=== PATIENT | female | born 1975 | race Caucasian/White ===

== ENCOUNTER → 2019-01-24 07:32 | Outpatient (CLI) | payer OTHER, SELFPAY ==
--- NOTE | 2019-01-24 11:41 | NEURO ---
NCS and/or EMG Patient Report Ordering Doctor: Pepito Rojo DATE OF SERVICE: 01/24/19 This is a right upper extremity EMG and nerve conduction study performed on this 43-year-old female with a history of right rotary rotator cuff. She also has numbness in the right fourth and fifth digits. She reports a fracture to her right elbow in 2010 and has had pain in her elbow since that time. Right upper extremity sensory motor nerve conduction study is performed demonstrating normal median motor and sensory, ulnar motor and sensory and radial sensory responses. The median and ulnar F-wave latencies are somewhat asymmetric with prolongation of the right ulnar F-wave latency. Right upper extremity needle electromyography was performed. Muscles evaluate included the first dorsal osseous, abductor pollicis brevis, brachioradialis, biceps, triceps and deltoid muscles. All muscles demonstrated normal insertional activity with absence of pathologic spontaneous activity. Motor unit potential recruitment pattern and amplitude is normal in all muscles tested. Impression: There is evidence of very mild ulnar neuropathy on the right, this is non-localizable. Otherwise normal study. Dictated but not proofread
== END ==
PROVIDERS: Family Provider Family Medicine; PCP Family Medicine; Referring Provider Orthopaedic Surgery; Visit Provider Orthopaedic Surgery
DX: M75.41 Impingement syndrome of right shoulder (principal); R20.2 Paresthesia of skin
CPT/HCPCS: 95886; 95910

== ENCOUNTER 2020-02-20 10:15 | Outpatient (RCR) | payer OTHER, SELFPAY ==
[2019-07-09 11:31] VITALS: BMI 30.2
== END 2020-02-20 11:00 | disposition home or self-care (01) ==
LOC: EMPH 10:15
PROVIDERS: PCP Family Medicine; Visit Provider Family Medicine Geriatric Medicine
DX: Z11.59 Encounter for screening for other viral diseases (principal)
CPT/HCPCS: 87635; U0003

== ENCOUNTER → 2020-02-20 18:08 | Outpatient (CLI) | payer SELFPAY ==
[2019-07-09 11:31] VITALS: BMI 30.2
== END ==
LOC: EMPH 18:09
PROVIDERS: PCP Family Medicine; Visit Provider Family Medicine Geriatric Medicine
DX: Z11.59 Encounter for screening for other viral diseases (principal)
CPT/HCPCS: 87635; U0003

== ENCOUNTER → 2020-03-03 07:15 | Outpatient (CLI) | payer OTHER, SELFPAY ==
[2019-07-09 11:31] VITALS: BMI 30.2
--- NOTE | 2020-03-03 07:22 | MRI_ITS ---
STUDY: MRI LEFT FOREFOOT WITHOUT CONTRAST REASON FOR EXAM: Pain in the ball of foot for 2 months, no specific injury. TECHNIQUE: Standardized fat and water weighted pulse sequences were obtained in all 3 orthogonal planes. COMPARISON: None. FINDINGS: Normal metatarsophalangeal joint of the hallux. Normal tibial and fibular sesamoids, with normal sesamoids-first metatarsal articulations. Normal interphalangeal joint of the hallux. There is very mild bone edema in the first proximal phalanx (inversion recovery sagittal image 21) and first distal phalanx (inversion recovery sagittal image 19). Normal medial and lateral heads of the flexor hallucis brevis tendons. Normal flexor and extensor hallucis longus tendons. Normal second through fifth metatarsophalangeal (MTP) joints. Normal interphalangeal joints of the second through fifth toes. Normal proximal, middle and distal phalanges of the second through fifth toes. There is soft tissue fullness at the plantar aspect of the second webspace (T1 short axis series 4 image 24) measuring 0.3 cm in transverse dimension, suggestive of a small intermetatarsal neuroma. Normal flexor and extensor tendons of the second through fifth toes. Normal metatarsals. Normal intrinsic muscles of the forefoot. There is a small ganglion cyst of the flexor tendon sheath of the third digit at the level of the proximal phalanx (T2 short axis series 3 image 27; T2 long axis series 5 image 13) measuring 0.35 cm in length. There are pressure lesions at the plantar aspect of the first metatarsophalangeal joint (T1 short axis series 4 image 20) and fifth metatarsophalangeal joint (T1 short axis series 4 image 17). There is mild edema in the dorsal subcutis adipose space. MRI/Lower Ext/No Jt/w/o IMPRESSION: Small intermetatarsal neuroma of the second webspace. Very mild bone edema of the first proximal and distal phalanges. Small ganglion cyst of the flexor tendon sheath of the third digit. Pressure (transfer) lesions at the plantar aspect of the first and fifth metatarsophalangeal joints. Electronically Signed: Juanito Christensen MD at 10:01 EDT Tel , Service support ,
== END ==
PROVIDERS: PCP Family Medicine; Referring Provider Podiatrist; Visit Provider Podiatrist
DX: M84.30XA Stress fracture, unspecified site, initial encounter for fracture (principal)
CPT/HCPCS: 73718

== ENCOUNTER 2020-04-03 19:35 | Outpatient (RCR) | payer OTHER, SELFPAY ==
[2019-07-09 11:31] VITALS: BMI 30.2
== END 2020-04-05 23:59 ==
LOC: EMPH 19:35
PROVIDERS: PCP Family Medicine; Visit Provider Family Medicine Geriatric Medicine
DX: Z03.818 Encounter for observation for suspected exposure to other biological agents ruled out (principal)
CPT/HCPCS: 87426

== ENCOUNTER 2020-04-30 15:53 | Outpatient (RCR) | payer OTHER, SELFPAY ==
[2019-07-09 11:31] VITALS: BMI 30.2
[2020-04-17 17:15] LABS: Probe Check PASS; Specimen Processing Control PASS
== END 2020-05-05 23:59 ==
LOC: EMPH 15:53
PROVIDERS: PCP Family Medicine; Visit Provider Family Medicine Geriatric Medicine
DX: Z03.818 Encounter for observation for suspected exposure to other biological agents ruled out (principal)
CPT/HCPCS: 87426; 87635; U0002

== ENCOUNTER → 2020-05-24 08:31 | Outpatient (CLI) | payer OTHER, SELFPAY ==
[2019-07-09 11:31] VITALS: BMI 30.2
--- NOTE | 2020-05-24 08:30 | CT_ITS ---
STUDY: CT ABDOMEN AND PELVIS WITHOUT CONTRAST REASON FOR EXAM: Female, 44 years old. RIGHT FLANK PAIN RADIATES INTO RLQ/GROIN AREA -- X2 MONTHS -- 30# WEIGHT LOSS IN 2 MONTHS RADIATION DOSAGE (If Supplied By Facility): CTDIvol = ( 6.84 ) mGy, DLP = ( 324.78 ) mGycm TECHNIQUE: Transaxial images were obtained from the dome of the diaphragm to the symphysis pubis without oral contrast, and without intravenous contrast. Sagittal and coronal images were reconstructed. Individualized dose optimization techniques were used for this CT. COMPARISON: None. FINDINGS: The visualized lung bases are unremarkable. The visualized portions of the heart are within normal limits. Normal liver. There are surgical clips in the gallbladder fossa consistent with a prior cholecystectomy. Normal spleen. Normal pancreas. Normal bilateral adrenal glands. No hydronephrosis. No ureteral calculi. Small calculi in the left kidney measure up to 3 mm. Normal visualized stomach. Normal small intestine. There are multiple colonic diverticula consistent with diverticulosis. The appendix is visualized and appears normal. Normal abdominal aorta. Normal inferior vena cava. Normal retroperitoneum. Poorly distended urinary bladder. There is absence of the uterus consistent with a prior hysterectomy. Normal abdominal wall. Normal osseous structures. CT/Abdomen/Pelvis without Cont IMPRESSION: 1. Nonobstructing left nephrolithiasis. Electronically Signed: Kem Harris MD ([place]) at 9:14 EST , Service support ,
== END ==
PROVIDERS: PCP Family Medicine; Referring Provider Family Medicine; Visit Provider Family Medicine
DX: N20.0 Calculus of kidney (principal)
CPT/HCPCS: 74176

== ENCOUNTER 2020-05-25 18:28 | Emergency (ER) | payer OTHER, SELFPAY ==
[2019-07-09 11:31] VITALS: BMI 30.2
[2020-05-25 18:28] VITALS: BP 155/101; PULSE 78; RESP 20; TEMP 36.4; O2SAT 98; BMI 28.3
--- NOTE | 2020-05-25 18:58 | ED.VISSUMM ---
- ER Visit Summary Date of Service: 05/25/20 Chief Complaint: Abdominal pain History of Present Illness: The patient is a 44 F who presents with abdominal pain that has been constant over the past week. Patient states the pain starts in her right flank and radiates to her right lower quadrant. Patient describes the pain as sharp and aching. Patient states the pain is been constant. Patient states the pain is worse with certain movements. Patient admits to some nausea and vomiting. Patient denies any hematemesis or coffee-ground emesis. Patient admits to some loose stools but has a history of IBS. Patient denies any melena or hematochezia. Patient does admit to some discomfort with urination. Patient denies any hematuria. Physical Examination: Vital signs are stable. Patient is afebrile. Patient is in no acute distress. Heart was regular rate and rhythm. Lungs are clear and equal bilaterally. Abdomen is soft. Bowel sounds are normal. There is some mild right flank tenderness and right lower quadrant tenderness. There is no rebound or guarding noted. There is mild right CVA tenderness. Cranial nerves II through XII are intact. There are no focal motor or sensory deficits noted. Test Results: Patient had a CT scan of her abdomen and pelvis done yesterday. The results were reviewed. There is nonobstructing left nephrolithiasis. There is no other acute abnormality noted. This was interpreted by the radiologist. CBC and comprehensive metabolic profile were obtained and were essentially within normal limits. Potassium was slightly low at 3.1. Urinalysis does not show any evidence of urinary tract infection. Emergency Department Course and Treatment: Patient was given IV fluids, Zofran, and morphine. Patient is feeling better on reevaluation. Patient was advised of her findings. Patient was given a dose of potassium here. Patient was given a prescription for [place]. Patient was instructed to follow-up with her primary care physician in 5 to 7 days for further evaluation. Patient understood and was agreeable with the plan. All questions were answered. Disposition: Discharge home Impression: 1. Right flank pain This note was generated with [employer] software. It may contain incorrect words, spelling, and punctuation that were not noted in review of the chart prior to signing ED Disposition - Plan for ED Patient: Disposition: Home or Assisted Living Diagnosis: Right flank pain Instructions: ED Flank Pain, Uncertain Cause Prescriptions: Hydrocodone Bitart/Apap 5-325 [Ham[place] 5MG-325MG] 1 tab PO Q6H PRN PRN 3 Days #10 tab PRN Reason: Pain Prescription Printed Referrals: Waldemar Nevarez MD [Primary Care Provider] - 3-5 Days
[2020-05-25 19:09] LABS: Red Blood Cells-Urine 0 SEEN /hpf (0-5)
[2020-05-25 19:15] LABS: Color, Urine Yellow (Yellow); Glucose, Dipstick Normal (Normal); Ketone-Dipstick 5 mg/dl (Negative); Leukocyte Esterase-Dipstick 25 /ul (Negative); Nitrite-Dipstick Negative (Negative); Occult Blood-Urine Negative /ul (Negative); Protein-Dipstick 15 mg/dl (Negative); Specific Gravity, Urine 1.025 (1.002-1.030); Urine Bilirubin Dipstick Negative (Negative); Urine Clarity Cloudy (Clear); Urine Urobilinogen Normal (Normal)
[2020-05-25] MEDS: Ondansetron 4 MG/2 ML Vial IV (19:17)
[2020-05-25 19:18] LABS: Absolute Lymphocyte Count 2.68 X10^3/uL (0.83-4.51); Absolute Neutrophil Count 4.8 X10^3/uL (2.0-7.7); Basophil# 0.04 X10^3/uL; Basophil% 0.5 % (0-1); Eosinophil# 0.07 X10^3/uL; Eosinophils% 0.8 % (0-5); Hematocrit 37.8 % (37-47); Hemoglobin 12.6 g/dL (12.0-15.0); Lymphocyte # 2.68 X10^3/ul (4.0); Lymphocyte % 32.2 % (19-41); Mean Corp Hgb Conc 33.3 g/dL (32-36); Mean Corpuscular Hgb 31.6 pg (27.0-32.0); Mean Corpuscular Volume 94.7 fL (81-99); Mean Platelet Vol. 10.8 fl (6.2-12.0); Monocyte% 8.4 % (0-10); NRBC Flagged by Analyzer 0 % (0-5); Neutrophil % 57.6 % (47-70); Platelet Count 229 K/mm3 (150-450); RBC Distribution Width CV 12.2 % (11.6-14.6); RBC Distribution Width SD 42.7 fl (35.1-43.9); Red Blood Count 3.99 M/mm3 (4.2-5.4); White Blood Count 8.3 K/mm3 (4.4-11.0)
[2020-05-25] MEDS: Morphine 4 MG/ML Syringe IV (19:18)
[2020-05-25] MEDS: 0.9% Normal Saline 1,000 ML 1000 ML IV (19:19)
[2020-05-25 19:36] LABS: Squamous Epithelial Cells - UA 0-5 SEEN /hpf (5-10); White Blood Cells 0-5 SEEN /hpf (0-5)
[2020-05-25 19:37] LABS: Bacteria RARE /hpf (None Seen); Calcium Oxalate Crystals Ur RARE /hpf (<or=2+); Mucous, Urine RARE /hpf (<or=2+)
[2020-05-25 19:41] LABS: ALB/GLOB Ratio 1.1 RATIO (0.9-2.4); AST(SGOT) 8 U/L (15-37); Alanine Aminotransfer ALT/SGPT 19 U/L (13-56); Alkaline Phosphatase 56 U/L (45-117); Anion Gap 7 (5-15); BUN 5 mg/dL (7-18); BUN/Creat Ratio 6.8 RATIO (10-20); Calcium,Total 8.6 mg/dL (8.5-10.1); Chloride 109 mmol/L (98-107); Creatinine, Serum 0.74 mg/dL (0.55-1.02); EST Glomerular Filtration Rate 90 mL/min (>60); Est Glom Filt Rate - Afr Amer 109 mL/min (>60); Estimated Creatinine Clearance 80.25 ml/min; Globulin 3.6 g/dL (2.2-4.2); Glucose 84 mg/dL (74-106); Lipase 109 U/L (73-393); Potassium 3.1 mmol/L (3.5-5.1); Protein, Total 7.6 g/dL (6.4-8.2); Sodium Level 142 mmol/L (136-145)
[2020-05-25 19:53] VITALS: BP 122/80; PULSE 58; RESP 15; O2SAT 99
[2020-05-25 20:03] VITALS: BP 122/80; PULSE 58; RESP 15; O2SAT 99
== END 2020-05-25 20:11 | disposition home or self-care (01) ==
PROVIDERS: Emergency Provider Emergency Medicine; PCP Family Medicine
DX: R10.9 Unspecified abdominal pain (principal); N20.0 Calculus of kidney; E87.6 Hypokalemia
CPT/HCPCS: 80053; 81001; 83690; 85025; 96361; 96374; 96375; 99284; J7030; A4216; J2405

== ENCOUNTER 2020-06-04 14:18 | Outpatient (RCR) | payer OTHER, SELFPAY ==
[2019-07-09 11:31] VITALS: BMI 30.2
== END 2020-06-05 23:59 ==
LOC: EMPH 14:18
PROVIDERS: PCP Family Medicine; Visit Provider Family Medicine Geriatric Medicine
DX: Z03.818 Encounter for observation for suspected exposure to other biological agents ruled out (principal)
CPT/HCPCS: 87426

== ENCOUNTER 2020-06-25 11:56 | Outpatient (RCR) | payer OTHER, SELFPAY | END 2020-07-06 23:59 | LOC: EMPH 11:56 | PROVIDERS: PCP Family Medicine; Visit Provider Family Medicine Geriatric Medicine | DX: Z03.818 Encounter for observation for suspected exposure to other biological agents ruled out (principal) | CPT/HCPCS: 87426 ==

== ENCOUNTER 2020-10-03 13:49 | Outpatient (RCR) | payer OTHER, SELFPAY | END 2020-10-03 23:59 | LOC: EMPH 13:49 | PROVIDERS: PCP Family Medicine; Visit Provider Family Medicine Geriatric Medicine | DX: Z03.818 Encounter for observation for suspected exposure to other biological agents ruled out (principal) | CPT/HCPCS: 87426 ==

== ENCOUNTER 2020-10-28 13:42 | Outpatient (RCR) | payer OTHER, SELFPAY | END 2020-11-03 23:59 | LOC: EMPH 13:42 | PROVIDERS: PCP Family Medicine; Visit Provider Family Medicine Geriatric Medicine | DX: Z03.818 Encounter for observation for suspected exposure to other biological agents ruled out (principal) | CPT/HCPCS: 87426 ==

== ENCOUNTER 2020-12-03 07:57 | Outpatient (RCR) | payer OTHER, SELFPAY | END 2020-12-03 23:59 | LOC: EMPH 07:57 | PROVIDERS: PCP Family Medicine; Visit Provider Family Medicine Geriatric Medicine | DX: Z03.818 Encounter for observation for suspected exposure to other biological agents ruled out (principal) | CPT/HCPCS: 87426 ==

== ENCOUNTER 2021-02-03 11:55 | Outpatient (RCR) | payer OTHER, SELFPAY | END 2021-02-03 23:59 | LOC: EMPH 11:55 | PROVIDERS: PCP Family Medicine; Referring Provider Family Medicine Geriatric Medicine; Visit Provider Family Medicine Geriatric Medicine | DX: Z03.818 Encounter for observation for suspected exposure to other biological agents ruled out (principal) | CPT/HCPCS: 87426 ==

== ENCOUNTER 2021-02-16 09:48 | Outpatient (RCR) | payer OTHER, SELFPAY ==
[2021-02-04 00:15] VITALS: BMI 28.3
== END 2021-03-05 23:59 ==
LOC: EMPH 09:48
PROVIDERS: PCP Family Medicine; Referring Provider Family Medicine Geriatric Medicine; Visit Provider Family Medicine Geriatric Medicine
DX: Z03.818 Encounter for observation for suspected exposure to other biological agents ruled out (principal)
CPT/HCPCS: 87426

== ENCOUNTER 2021-04-07 14:25 | Outpatient (RCR) | payer OTHER, SELFPAY ==
[2021-03-06 00:11] VITALS: BMI 28.3
== END 2021-05-05 23:59 ==
LOC: EMPH 14:25
PROVIDERS: PCP Family Medicine; Referring Provider Family Medicine Geriatric Medicine; Visit Provider Family Medicine Geriatric Medicine
DX: Z03.818 Encounter for observation for suspected exposure to other biological agents ruled out (principal)
CPT/HCPCS: 87426

== ENCOUNTER 2021-06-04 15:36 | Outpatient (RCR) | payer OTHER, SELFPAY ==
[2021-05-06 00:07] VITALS: BMI 28.3
== END 2021-06-05 23:59 ==
LOC: EMPH 15:36
PROVIDERS: PCP Family Medicine; Referring Provider Family Medicine Geriatric Medicine; Visit Provider Family Medicine Geriatric Medicine
DX: Z03.818 Encounter for observation for suspected exposure to other biological agents ruled out (principal)
CPT/HCPCS: 87426; 87635; U0003; U0005

== ENCOUNTER 2021-06-30 09:04 | Outpatient (CLI) | payer OTHER, SELFPAY ==
[2021-06-30 09:34] LABS: Hematocrit 39.6 % (37-47); Hemoglobin 12.8 g/dL (12.0-15.0)
[2021-06-30 09:50] LABS: Internal QC Validated? YES +Cl - CLEAR BKGD; Pregnancy, Serum, hCG Quali. NEGATIVE Negative
[2021-06-30 09:54] LABS: BUN 12 mg/dL (7-18); Glucose 85 mg/dL (74-106)
== END 2021-06-30 23:59 | disposition short-term general hospital (02) ==
LOC: LAB 09:08
PROVIDERS: PCP Family Medicine; Referring Provider Podiatrist; Visit Provider Podiatrist
DX: G57.61 Lesion of plantar nerve, right lower limb (principal); G57.62 Lesion of plantar nerve, left lower limb
CPT/HCPCS: 36415; 82947; 84520; 84703; 85014; 85018

== ENCOUNTER 2021-07-06 10:32 | Outpatient (RCR) | payer OTHER, SELFPAY ==
[2021-06-06 00:10] VITALS: BMI 28.3
== END 2021-07-06 23:59 ==
LOC: EMPH 10:32
PROVIDERS: PCP Family Medicine; Referring Provider Family Medicine Geriatric Medicine; Visit Provider Family Medicine Geriatric Medicine
DX: Z03.818 Encounter for observation for suspected exposure to other biological agents ruled out (principal)
CPT/HCPCS: 87426

== ENCOUNTER → 2022-10-06 | Outpatient (CLI) | payer OTHER, SELFPAY ==
--- NOTE | 2022-10-06 12:26 | RAD_ITS ---
STUDY: X-RAY - RIGHT HAND, ATTENTION THIRD FINGER REASON FOR EXAM: Female, 47 years old. Pain after injury. TECHNIQUE: 3 view(s) of the finger were obtained. COMPARISON: None. FINDINGS: Normal metacarpal head. Normal metacarpophalangeal joint. Normal proximal phalanx. Normal middle phalanx. Normal distal phalanx. Normal proximal interphalangeal joint. Normal distal interphalangeal joint. Normal soft tissues. No opaque foreign body. RAD/Finger(s) Min 2 Views IMPRESSION: Normal x-ray examination of the right third finger. Electronically Signed: Rony Fortune DO at 17:30 EDT ,
== END | disposition home or self-care (01) ==
LOC: RAD 11:59
PROVIDERS: PCP Family Medicine; Referring Provider Orthopaedic Surgery; Visit Provider Orthopaedic Surgery
DX: M79.641 Pain in right hand (principal)
CPT/HCPCS: 73140

== ENCOUNTER → 2024-06-20 | Outpatient (CLI) | payer OTHER, SELFPAY ==
--- NOTE | 2024-06-20 12:57 | NEURO ---
NCS and/or EMG Patient Report Ordering Doctor: Ritesh Acuña DATE OF SERVICE: 06/20/24 Jory presents with pain and burning in the right hand. Electrodiagnostic findings: Right median motor nerve demonstrates normal distal latency, amplitude and conduction velocity. Normal right ulnar motor response. Normal right median and ulnar F?wave. Sensory responses are within normal limits. Needle EMG testing was performed the right upper limb. All muscles tested showed no evidence of denervation with normal motor unit action potentials. Electrodiagnostic impression: This is a normal electrodiagnostic study of the upper limb. There is no electrodiagnostic evidence for peripheral neuropathy, including carpal tunnel syndrome. There is no electrodiagnostic evidence for cervical radiculopathy Multi Select Codes Neurology Neurology Interp Codes: 52999-79 Musc test done w/n test comp (interp) and 74087-17 Nrv cndj test 7-8 studies (interp)
== END | disposition home or self-care (01) ==
LOC: PSN 10:03
PROVIDERS: PCP Family Medicine; Referring Provider Student in an Organized Health Care Education/Training Program; Visit Provider Student in an Organized Health Care Education/Training Program
DX: R20.2 Paresthesia of skin (principal)
CPT/HCPCS: 95886; 95910